=== PATIENT | female | born 1980 | race Caucasian/White ===

== ENCOUNTER → 2024-01-10 11:07 | Outpatient (REF) | payer BC, SELFPAY | LOC: HWRAD 11:07 | PROVIDERS: ATTENDING PHYSICIAN Obstetrics & Gynecology; FAMILY PHYSICIAN Nurse Practitioner | DX: N92.6 Irregular menstruation, unspecified (principal) | CPT/HCPCS: 76830; 76856 ==

== ENCOUNTER 2024-03-13 06:34 | Day surgery (SDC) | payer BC, SELFPAY ==
[2024-03-13] VITALS (8 sets, daily range): BP systolic 106–127; BP diastolic 58–71; BMI 40.0
== END 2024-03-13 14:29 | disposition home or self-care (01) ==
LOC: SDS 06:34
PROVIDERS: ATTENDING PHYSICIAN Obstetrics & Gynecology
DX: N93.9 Abnormal uterine and vaginal bleeding, unspecified (principal)
CPT/HCPCS: 58558; 88304; 88305